=== PATIENT | female | born 1985 | race Caucasian/White ===

== ENCOUNTER 2018-06-16 11:15 | Outpatient (CLI) | payer OTHER ==
[~2018-06-16] VITALS: Ht 165.1 cm; Wt 104.1 kg
[2018-06-16 11:28] VITALS: BP 142/91; PULSE 101; RESP 20; Ht 165.1 cm; Wt 104.1 kg
[2018-06-16] MEDS ORDERED: PREN1TAB13 PO (11:30)
[2018-06-16] MEDS ORDERED: FERR325T5 PO (11:31)
[2018-06-16] MEDS ORDERED: CHOL400T10 PO (11:32)
[2018-06-16] MEDS: LACTATED RINGER'S 1,000 ML IV SCH ×2 (12:01→16:11)
--- NOTE | 2018-06-16 14:33 | HP ---
Date/Time of Note Date/Time of Note DATE: 06/16/18 TIME: 14:31 OB - History Hx of Present Free Text/Dictation 23+wks With cramps and Positive FFN For Observations and steroids : 2 Para: 1 Care: Good Care Ultrasounds: Normal mid trimester US Obstetrical Complications: None Medical Complications: None Past Family/Social History * Past Medical, Surgical, Family and Obstetric Histories reviewed from chart. OB Admission Exam Vital Signs Vital Signs Vital Signs Date Temp Pulse Resp B/P (MAP) Pulse Ox O2 O2 Flow FiO2 Time Delivery Rate 06/16/18 98.5 101 20 142/91 Room Air 11:28 (108) Physical Exam Abdomen: WNL Cervical Dilatation: None Effacement: 0% Station: Ballotable Membranes: Intact Heart Rate: 140's Accelerations: Accelerations Present Decelerations: No Decelerations Varibility: Moderate Contractions on Admission: None Last 72 hours Lab Results CBC & BMP 06/16/18 11:54 Liver Function Test 06/16/18 11:54 Alanine Aminotransferase (ALT/SGPT) 22 Albumin 4.0 Alkaline Phosphatase 74 Aspartate Amino Transf (AST/SGOT) 24 Direct Bilirubin 0.00 Total Protein 7.5 OB Assessment/Plan Reason for admission: observation Other Assessment: PMH Denies PSH Denies Allergy NKDA Plan: Expectant Management Other plan: Steroids Observation Close Monitoring JOSE BRAVO M.D. Jun 16, 2018 14:33
[2018-06-16] MEDS ORDERED: CEFAZOLIN 2 GM/50 ML (PMX) 50 ML IVPB ONE (15:00)
[2018-06-16] MEDS ORDERED: BETAMET NA PHOS/AC(6 MG/ML) 2 ML INJ SYG IM ONE (16:00)
--- NOTE | 2018-06-16 17:45 | TRIAGE ---
OB Triage Datetime Report Generated by CPN: 06/16/2018 17:44 Datetime: 06/16/2018 17:00 Labor Evaluation Frequency: X1 Monitor Mode: External Duration (sec)2399: 40 Quality: Mild Pattern: Normal: <= 5 Contractions in 10 Minutes Resting Tone [place]: Relaxed Heart Rate FHR Baseline Rate: 150 Monitor Mode: External US FHR Baseline Changes: No Baseline Change Variability: Moderate 6-25 bpm Accelerations: 10X10 Decelerations: None Category: Category I Pain Assessment Pain Scale: 0 Pain Presence: None/Denies Pain Type: N/A Pain Goal: 0 Datetime: 06/16/2018 16:00 Labor Evaluation Frequency: 0 Monitor Mode: External Monitor Mode: External US Pain Assessment Pain Scale: 1 Pain Presence: Intermittent Pain Type: Cramping Pain Location: Abdomen; Back Pain Goal: 0 Datetime: 06/16/2018 15:00 Labor Evaluation Frequency: X1 Monitor Mode: External Duration (sec)2399: 40 Quality: Mild Pattern: Normal: <= 5 Contractions in 10 Minutes Resting Tone [place]: Relaxed Heart Rate FHR Baseline Rate: 145 Monitor Mode: External US FHR Baseline Changes: No Baseline Change Variability: Moderate 6-25 bpm Accelerations: 10X10 Decelerations: None Category: Category I Pain Assessment Pain Scale: 1 Pain Presence: Intermittent Pain Type: Cramping Pain Location: Abdomen; Back Pain Goal: 0 Datetime: 06/16/2018 13:53 Labor Evaluation Frequency: 0 Monitor Mode: External Heart Rate FHR Baseline Rate: 140 Monitor Mode: External US FHR Baseline Changes: No Baseline Change Variability: Moderate 6-25 bpm Accelerations: 10X10 Decelerations: None Category: Category I Pain Assessment Pain Scale: 2 Pain Presence: Intermittent Pain Type: Cramping Pain Location: Abdomen; Back Pain Goal: 0 Datetime: 06/16/2018 13:31 Labor Evaluation Frequency: X1 Monitor Mode: External Duration (sec)2399: 40 Quality: Mild Pattern: Normal: <= 5 Contractions in 10 Minutes Resting Tone [place]: Relaxed Heart Rate FHR Baseline Rate: 150 Monitor Mode: External US Pain Assessment Pain Scale: 2 Pain Presence: Intermittent Pain Type: Cramping Pain Location: Abdomen; Back Pain Goal: 0 Datetime: 06/16/2018 12:53 Labor Evaluation Frequency: X1 Monitor Mode: External Duration (sec)2399: 60 Quality: Mild Pattern: Normal: <= 5 Contractions in 10 Minutes Resting Tone [place]: Relaxed Heart Rate FHR Baseline Rate: 150 Monitor Mode: External US FHR Baseline Changes: No Baseline Change Variability: Moderate 6-25 bpm Accelerations: 10X10 Decelerations: None Category: Category I Pain Assessment Pain Scale: 2 Pain Presence: Intermittent Pain Type: Cramping Pain Location: Abdomen; Back Pain Goal: 0 Datetime: 06/16/2018 12:24 Labor Evaluation Frequency: x1 Monitor Mode: External Duration (sec)2399: 40 Quality: Mild Pattern: Normal: <= 5 Contractions in 10 Minutes Resting Tone [place]: Relaxed Heart Rate FHR Baseline Rate: 150 Monitor Mode: External US FHR Baseline Changes: No Baseline Change Variability: Moderate 6-25 bpm Accelerations: 10X10 Decelerations: None Category: Category I Pain Assessment Pain Scale: 2 Pain Presence: Intermittent Pain Type: Cramping Pain Location: Abdomen; Back Pain Goal: 0 Datetime: 06/16/2018 11:53 Labor Evaluation Frequency: x2 Monitor Mode: External Duration (sec)2399: 40 Quality: Mild Pattern: Normal: <= 5 Contractions in 10 Minutes Resting Tone [place]: Relaxed Heart Rate FHR Baseline Rate: 150 Monitor Mode: External US FHR Baseline Changes: No Baseline Change Variability: Moderate 6-25 bpm Accelerations: 10X10 Decelerations: None Category: Category I Pain Assessment Pain Scale: 2 Pain Presence: Intermittent Pain Type: Cramping Pain Location: Abdomen; Back Pain Goal: 0 Datetime: 06/16/2018 11:36 EGA: 23.1 Datetime: 06/16/2018 11:21 Stage of : OB Triage Maternal Assessment Level of Consciousness: Fully Conscious Headache: Denies Blurred Vision: No Respiratory Effort: Unlabored; Regular Rhythm; Equal Expansion Breath Sounds, Left: Clear and Equal Breath Sounds, Right: Clear and Equal Nausea/Vomiting: Denies RUQ Epigastric Pain: Denies Lower Extremities Edema: None Degree: None Upper Extremities Edema: None Degree: None Facial Edema: None Temperature Route: Axillary Fall Risk Assessment History of Falling: (0) No Secondary Diagnosis: (0) No Ambulatory Aid: (0) Bedrest/Nurse Assist IV Therapy: (0) No Gait: (0) Normal/Bedrest/Immobile Mental Status: (0) Oriented to Own Ability Fall Score: 0 Fall Risk Score Definition: No Risk: No action required Datetime: 06/16/2018 11:20 Time of Arrival: 06/16/2018 11:10 Arrived By: Ambulatory Arrived From: Dr. Jolley Chief Complaint: cramping Movement: Present Rupture of Membranes: Denies Vaginal Discharge: Denies Recent Sexual Intercouse: Denies Abdominal Trauma: Not Applicable Patient Complaints: Cramping Time Provider Notified: 06/16/2018 14:04 Provider Notified: ALEYDA BEAN Initial Plan: efm, ua, iv hydration
== END 2018-06-16 17:34 | disposition home or self-care (01) ==
LOC: L-D 11:15 → OBT 11:15
PROVIDERS: ATTEND Obstetrics & Gynecology
DX: O62.9 Abnormality of forces of labor, unspecified (principal); Z3A.23 23 weeks gestation of pregnancy
CPT/HCPCS: 76817; 76818; 80053; 81001; 82731; 84560; 85025; 85610; 85730; J0690; J0702; J7120; 96360; G0463

== ENCOUNTER 2018-09-11 09:29 | Outpatient (CLI) | payer OTHER ==
[~2018-09-11] VITALS: Ht 165.1 cm; Wt 109.1 kg
[~2018-09-11 09:29] MED LIST: CHOL400T10 PO; FERR325T5 PO; PREN1TAB13 PO
[2018-09-11 09:31] VITALS: Ht 165.1 cm; Wt 109.1 kg
[2018-09-11 09:44] VITALS: BP 134/87; PULSE 90; RESP 20
--- NOTE | 2018-09-11 11:08 | PN ---
Triage Information Date/Time Reason for visit: Uterine contractions Weeks of Gestation 35+ /Para 2/1 Diabetes: none Hypertention: none Objective Vital Signs Date Temp Pulse Resp B/P (MAP) Pulse Ox O2 O2 Flow FiO2 Time Delivery Rate 09/11/18 97.9 90 20 134/87 Room Air 09:44 (103) Heart Rate: 140's Contractions: 6-10 Minutes Apart Disposition: Discharge Assessment/Plan Bpp 10/10 Cx 1/L/posterior Precautions discussed Questions answered Follow up with provider JOSE BRAVO M.D. Sep 11, 2018 11:08
--- NOTE | 2018-09-11 11:21 | TRIAGE ---
OB Triage Datetime Report Generated by CPN: 09/11/2018 11:20 Datetime: 09/11/2018 11:03 Labor Evaluation Frequency: x1 Monitor Mode: External Duration (sec)2399: 40 Quality: Mild Pattern: Normal: <= 5 Contractions in 10 Minutes Resting Tone [place]: Relaxed Heart Rate FHR Baseline Rate: 135 Monitor Mode: External US FHR Baseline Changes: No Baseline Change Variability: Moderate 6-25 bpm Accelerations: 15X15 Decelerations: None Category: Category I Comments: Dr. Glover at bedside to review strip and review u/s results. Pt ok to go home, no new orders received. Datetime: 09/11/2018 11:00 Comments: BPP results of 01/04 with PRASANNA of 11.[address] Glover. He will be here to d/c pt. Datetime: 09/11/2018 10:42 Comments: U/S in progress Datetime: 09/11/2018 10:24 Comments: Dr. Glover was informed of pt's arrival to unit with c/o's cramping and Dr Euceda order s to hydrate pt, BPP and send pt home. No new order given by Dr. Glover. Will call him with results Datetime: 09/11/2018 10:23 Comments: Dr. Euceda was informed of pt's arrival to unit with c/o cramping. No contractions noted, VE . New order for PO hydration, BPP and send pt home. Datetime: 09/11/2018 10:22 Vaginal Exam Dilatation (cms): 1.0 Effacement (%): 30 Station: -2 Exam By: LH Datetime: 09/11/2018 10:10 Maternal Assessment Level of Consciousness: Fully Conscious Headache: Denies Blurred Vision: No Nausea/Vomiting: Denies RUQ Epigastric Pain: Present Facial Edema: None Labor Evaluation Frequency: x2 Monitor Mode: External Duration (sec)2399: 4 Quality: Mild Pattern: Normal: <= 5 Contractions in 10 Minutes Resting Tone [place]: Relaxed Heart Rate FHR Baseline Rate: 140 Monitor Mode: External US FHR Baseline Changes: No Baseline Change Variability: Moderate 6-25 bpm Accelerations: 15X15 Decelerations: None Category: Category I Pain Assessment Pain Scale: 3 Pain Presence: Intermittent Pain Type: Cramping Pain Location: Abdomen Pain Goal: 6 Pain Relief Measures: Comfort Measures Membrane Status: Intact Datetime: 09/11/2018 09:40 Stage of : OB Triage Assessment Type: Triage Maternal Assessment Level of Consciousness: Fully Conscious DTR's/Clonus: DTRs 2+; No Clonus Headache: Denies Blurred Vision: No Respiratory Effort: Unlabored; Regular Rhythm; Equal Expansion Breath Sounds, Left: Clear and Equal Breath Sounds, Right: Clear and Equal Nausea/Vomiting: Denies RUQ Epigastric Pain: Denies Lower Extremities Edema: Bilateral Lower Extremities Degree: 1+ Upper Extremities Edema: None Degree: None Facial Edema: None Fall Risk Assessment History of Falling: (0) No Secondary Diagnosis: (0) No Ambulatory Aid: (0) Bedrest/Nurse Assist IV Therapy: (0) No Gait: (0) Normal/Bedrest/Immobile Mental Status: (0) Oriented to Own Ability Fall Score: 0 Fall Risk Score Definition: No Risk: No action required Pain Assessment Pain Scale: 4 Pain Presence: Intermittent Pain Type: Cramping Pain Location: Abdomen Pain Goal: 6 Datetime: 09/11/2018 09:34 Time of Arrival: 09/11/2018 09:25 EGA: 35.4 Arrived By: Ambulatory Arrived From: Home Chief Complaint: Cramping Movement: Present Rupture of Membranes: Denies Vaginal Bleeding: None Vaginal Discharge: Present Recent Sexual Intercouse: Denies Abdominal Trauma: Not Applicable Patient Complaints: Cramping Provider Notified: Ok Initial Plan: NST, BPP and PO hydration Datetime: 06/16/2018 11:36 EGA: 23.1 Datetime: 06/16/2018 11:21 Fall Score: 0 Fall Risk Score Definition: No Risk: No action required
== END 2018-09-11 11:20 | disposition home or self-care (01) ==
LOC: OBT 09:29 → L-D 09:29 → OBT 11:20
PROVIDERS: ATTEND Obstetrics & Gynecology
DX: O62.9 Abnormality of forces of labor, unspecified (principal); Z3A.35 35 weeks gestation of pregnancy
CPT/HCPCS: 76818; Z7500; G0463

== ENCOUNTER 2018-09-25 09:01 | Inpatient (IN) | payer OTHER ==
[~2018-09-25] VITALS: Ht 165.1 cm; Wt 109.4 kg
[2018-09-25 09:18] VITALS: Ht 165.1 cm; Wt 109.4 kg
--- NOTE | 2018-09-25 09:36 | TRIAGE ---
OB Triage Datetime Report Generated by CPN: 09/25/2018 09:35 Datetime: 09/25/2018 09:32 Stage of : OB Triage Datetime: 09/25/2018 09:23 Maternal Assessment Level of Consciousness: Fully Conscious DTR's/Clonus: DTRs 1+ Headache: Denies Blurred Vision: No Respiratory Effort: Unlabored Breath Sounds, Left: Clear and Equal Breath Sounds, Right: Clear and Equal Nausea/Vomiting: Denies RUQ Epigastric Pain: Denies Facial Edema: None Labor Evaluation Frequency: NONE Monitor Mode: External Resting Tone [place]: Relaxed Heart Rate FHR Baseline Rate: 140 Monitor Mode: External US Variability: Moderate 6-25 bpm Accelerations: 10X10 Decelerations: None Category: Category I Pain Assessment Pain Scale: 4 Pain Presence: Intermittent Pain Type: Cramping; Ache Pain Location: Back Pain Goal: 3 Vaginal Exam Membrane Status: Intact Datetime: 09/25/2018 09:05 Assessment Type: Triage Maternal Assessment Level of Consciousness: Fully Conscious DTR's/Clonus: DTRs 2+; No Clonus Headache: Denies Blurred Vision: No Respiratory Effort: Unlabored; Regular Rhythm; Equal Expansion Breath Sounds, Left: Clear and Equal Breath Sounds, Right: Clear and Equal Nausea/Vomiting: Denies RUQ Epigastric Pain: Denies Lower Extremities Edema: None Degree: None Upper Extremities Edema: None Degree: None Facial Edema: None Fall Risk Assessment History of Falling: (0) No Secondary Diagnosis: (0) No Ambulatory Aid: (0) Bedrest/Nurse Assist IV Therapy: (0) No Gait: (0) Normal/Bedrest/Immobile Mental Status: (0) Oriented to Own Ability Fall Score: 0 Fall Risk Score Definition: No Risk: No action required Datetime: 09/25/2018 08:57 Time of Arrival: 09/25/2018 08:57 EGA: 37.4 Chief Complaint: LEFT SIDE FLANK PAIN AND ABD PAIN Movement: Present Contractions: Denies/Absent Rupture of Membranes: Denies Vaginal Discharge: Denies Recent Sexual Intercouse: Denies Abdominal Trauma: Not Applicable Additional Patient Complaints: NONE Time Provider Notified: 09/25/2018 09:16 Provider Notified: ALEYDA Initial Plan: NST, BPP, UA Datetime: 09/11/2018 09:40 Fall Score: 0 Fall Risk Score Definition: No Risk: No action required Datetime: 09/11/2018 09:34 EGA: 35.4 Datetime: 06/16/2018 11:36 EGA: 23.1 Datetime: 06/16/2018 11:21 Fall Score: 0 Fall Risk Score Definition: No Risk: No action required
[2018-09-25] MEDS: LACTATED RINGER'S 1,000 ML IV SCH ×2 (10:40→18:55)
[2018-09-25] MEDS: CEFAZOLIN 2 GM/50 ML (PMX) 50 ML IVPB SCH ×2 (11:46→17:58)
[2018-09-26] MEDS: CEFAZOLIN 2 GM/50 ML (PMX) 50 ML IVPB SCH ×4 (00:13→17:50)
[2018-09-26] MEDS: LACTATED RINGER'S 1,000 ML IV SCH ×3 (03:16→21:00)
[2018-09-26] MEDS: FERROUS SULFATE (EC) 325 MG TAB PO SCH (09:34)
[2018-09-26] MEDS: PRENATAL VITAMIN PO SCH (09:34)
--- NOTE | 2018-09-26 12:32 | HP ---
Date/Time of Note Date/Time of Note DATE: 09/26/18 TIME: 12:30 OB - History Hx of Present Free Text/Dictation at 37/4 weeks with flank pain Care: Good Care Ultrasounds: Normal mid trimester US Obstetrical Complications: None Medical Complications: None Past Family/Social History * Past Medical, Surgical, Family and Obstetric Histories reviewed from chart. OB Admission Exam Physical Exam HEENT: WNL Heart: Rhythm Normal Lungs: Clear, Equal Abdomen: WNL Extremities: Normal Reflexes: Normal Cervical Dilatation: None Effacement: 0% Station: Ballotable Membranes: Intact Heart Rate: 120's Accelerations: Accelerations Present Decelerations: No Decelerations Intensity: Moderate OB Assessment/Plan Reason for admission: other (pylonephritis) Plan: Other (ancef) KACEY MAYNARD MD Sep 26, 2018 12:32
--- NOTE | 2018-09-26 13:41 | DS ---
Date/Time of Note Date/Time of Note DATE: 09/26/18 TIME: 13:40 Discharge Summary Admission/Discharge Info Admit Date/Time Sep 25, 2018 at 09:32 Discharge Date/Time Discharge Diagnosis pyelonephritis Patient Condition: Stable Hospital Course received Ancef Home Meds Reported Medications Cholecalciferol* (Vitamin D*) 400 Unit Tablet, 400 UNIT PO DAILY, TAB 06/16/18 Ferrous Sulfate (Ferrous Sulfate) 325 Mg Tablet.dr, 325 MG PO DAILY 06/16/18 Pnv95/Ferrous Fumarate/FA ( Vitamins Tablet) 1 Each Tablet, 1 EACH PO DAILY, TAB 06/16/18 Primary Care Provider Not On Staff Doctor Pending Labs Laboratory Tests Test 09/26/18 07:00 Lab Scanned Report REFER[facility] LAB [id number] KACEY MAYNARD MD Sep 26, 2018 13:41
[2018-09-27] MEDS: CEFAZOLIN 2 GM/50 ML (PMX) 50 ML IVPB SCH ×2 (00:01→06:04)
[2018-09-27] MEDS: LACTATED RINGER'S 1,000 ML IV SCH ×3 (05:05→21:32)
[2018-09-27] MEDS: FERROUS SULFATE (EC) 325 MG TAB PO SCH (11:42)
[2018-09-27] MEDS: PRENATAL VITAMIN PO SCH (11:42)
[2018-09-27] MEDS ORDERED: LACTATED RINGER'S 1,000 ML IV SCH ×2 (12:33→13:32)
[2018-09-27] MEDS ORDERED: IBUPROFEN 600 MG TAB PO PRN ×2 (13:00→14:00)
[2018-09-27] MEDS ORDERED: AMPICILLIN 2 GM/NS (PMX) 100 ML IV ONE (13:00)
[2018-09-27] MEDS ORDERED: LIDOCAINE 1% (MPF) 30 ML INJ INJ PRN (13:00)
[2018-09-27] MEDS ORDERED: CARBOPROST 250 MCG INJ IM PRN (13:00)
[2018-09-27] MEDS ORDERED: OXYTOCIN 30 UNITS/LR 500 ML IV SCH (13:00)
[2018-09-27] MEDS ORDERED: BUTORPHANOL 2 MG INJ IV PRN ×2 (13:00)
[2018-09-27] MEDS ORDERED: MISOPROSTOL 200 MCG TAB PR PRN (13:00)
[2018-09-27] MEDS ORDERED: OXYTOCIN 30 UNITS/LR 500 ML IV PRN (13:00)
[2018-09-27] MEDS ORDERED: METHYLERGONOVINE 0.2 MG INJ IM PRN (13:00)
[2018-09-27] MEDS: MISOPROSTOL 50 MCG CAPSULE PO SCH ×3 (15:31→22:30)
--- NOTE | 2018-09-27 18:24 | PN ---
Date/Time of Note Date/Time of Note DATE: 09/27/18 TIME: 18:21 OB Subjective Subjective Subjective Patient seen and examined. She states good movement. She denies nausea, vomiting, shortness of breath, chest pain, abdominal pain, uterine contractions, headache, visual changes, vaginal bleeding or LOF. General: Patient appears well, alert and oriented, NAD, appropriate mood and affect ABD: gravid, soft, non-tender. Back: No CVA tenderness (B/L) LE: Mild edema. No clubbing, cyanosis, edema, thigh or calf tenderness bilaterally FHT: 135 bpm , moderate variability with acceleration, no deceleration-category I Contractions: None SVE: 1-2/70/ceph/intact membrane/ROM/clear* 33 years old 2 para 1-0-0-1 with single intrauterine at 37 weeks and 6 days with the chronic hypertension. First elevated blood pressure was at 11 weeks of gestation. She was admitted for back pain. However today her blood pressure was elevated, CBC and CMP done, normal platelet and ALT. Elevated AST. Patient discussed with Dr. Gupta he would recommend delivery. Patient transferred to labor and delivery for further management. Primary OB physician updated - FHR: Reassuring. No sign of metabolic acidosis- Category I - Continuous EFM, toco. - Epidural per patient request - Please see the order Admission, procedures, expectations, risks and possible complications have been discussed in detail with the patient. Risk of vaginal delivery including but not limited to bleeding, infection, cervical laceration, placental retention, injury to fetus, blood transfusion, blood transfusion related infection, risk of anesthesia, adhesion, cervical laceration, episiotomy/laceration, possible delivery with risk of bleeding, infection, injury to other organs (bowel, bladder, ureter, vessels, nerves), injury to fetus, blood transfusion, blood transfusion related infection, risk of anesthesia, scar and hernia formation, needs for future , removal of uterus or any other indicated surgery discussed with the patient. She expressed understanding and repeats the risks. All of her questions were answered. She signed the informed consent. PHYSICIAN'S VERIFICATION OF INFORMED CONSENT The patient was counseled regarding the procedure, its indications, risks, potential complications and alternatives and any questions were answered. Consent was obtained. PLANNED PROCEDURE/TREATMENT: Vaginal delivery, episiotomy, repair of laceration possible delivery HADADIAN,SUKHDEEP September 27, 2018 18:24
[2018-09-27] MEDS: AMPICILLIN 1 GM/NS (PMX) 50 ML IV SCH ×2 (20:24→21:31)
--- NOTE | 2018-09-27 22:03 | PREAC ---
Date/Time of Note Date/Time of Note DATE: 09/27/18 TIME: 22:02 Anesthesia Eval and Record Evaluation Time Pre-Procedure Interview DATE: 09/27/18 TIME: 22:02 Age 33 Sex female NPO: 8 hrs Preoperative diagnosis Planned procedure labor epidural Past Medical History Past Medical History: Includes GI: Morbid obesity Surgery & Anesthesia Issues No known issue Meds Anticoagulation: No Beta Sandra within 24 hr: No Reason Beta Sandra not given: Pt. not on B-Sandra Reported Medications Cholecalciferol* (Vitamin D*) 400 Unit Tablet, 400 UNIT PO DAILY, TAB 06/16/18 Ferrous Sulfate (Ferrous Sulfate) 325 Mg Tablet.dr, 325 MG PO DAILY 06/16/18 Pnv95/Ferrous Fumarate/FA ( Vitamins Tablet) 1 Each Tablet, 1 EACH PO DAILY, TAB 06/16/18 Current Medications Lactated Ringer's 1,000 ml @ 125 mls/hr Q8H IV Last administered on 09/27/18at 21:31; Admin Dose 125 MLS/HR; Start 09/25/18 at 10:11 Prenat Multivit/ [place]/Iron/Folic Ac () 1 tab DAILY PO Last administered on 09/27/18at 11:42; Admin Dose 1 TAB; Start 09/26/18 at 09:00 Ferrous Sulfate (Ferrous Sulfate (Ec)) 325 mg DAILY PO Last administered on 09/27/18at 11:42; Admin Dose 325 MG; Start 09/26/18 at 09:00 Ampicillin 50 ml @ 100 mls/hr Q4H IV Last administered on 09/27/18at 21:31; Admin Dose 100 MLS/HR; Start 09/27/18 at 17:00 Butorphanol Tartrate (Stadol) 1 mg Q2H PRN IV PAIN; Start 09/27/18 at 13:00 Butorphanol Tartrate (Stadol) 2 mg Q2H PRN IV .PAIN; Start 09/27/18 at 13:00 Lidocaine (Xylocaine 1% (Mpf)) 30 ml ONCE PRN INJ .EPISIOTOMY; Start 09/27/18 at 13:00 Oxytocin/Lactated Ringer's 500 ml @ 500 mls/hr ONCE POST IV ; Start 09/27/18 at 13:00 Oxytocin/Lactated Ringer's 500 ml @ 125 mls/hr POST IV ; Start 09/27/18 at 13:00 Ibuprofen (Motrin) 600 mg ONCE PRN PO .PAIN 1-5; Start 09/27/18 at 13:00 Oxytocin/Lactated Ringer's 500 ml @ 0 mls/hr ONCE PRN IV .VAGINAL BLEEDING; Start 09/27/18 at 13:00 Methylergonovine Maleate (Methergine) 0.2 mg ONCE PRN IM .VAGINAL BLEEDING; Start 09/27/18 at 13:00 Carboprost Tromethamine (Hemabate) 250 mcg ONCE PRN IM .VAGINAL BLEEDING; Start 09/27/18 at 13:00 Misoprostol (Cytotec) 1,000 mcg ONCE PRN OR .VAGINAL BLEEDING; Start 09/27/18 at 13:00 Ibuprofen (Motrin) 600 mg ONCE PRN PO .PAIN 1-5; Start 09/27/18 at 14:00; Stop 09/27/18 at 23:00 Misoprostol (Cytotec 50 Mcg Capsule) 50 mcg Q4 PO Last administered on 09/27/18at 20:59; Admin Dose 50 MCG; Start 09/27/18 at 15:00 Meds reviewed: Yes Allergies Coded Allergies: No Known Allergy (Unverified , 09/25/18) Allergies Reviewed: Yes Labs/Studies Labs Reviewed: Reviewed by anesthesiologist Result Diagram: 09/27/18 1049 09/27/18 1049 Laboratory Tests 09/27/18 10:49 Blood Bank Test 09/27/18 13:23 Antibody Screen NEGATIVE Blood Type O POSITIVE test: Positive Pre-procedure Exam Airway: Adequate mouth opening, Adequate thyromental dist Mallampati: Mallampati II Teeth: Normal Lung: Normal Heart: Normal ASA Physical Status ASA physical status: 2 Emergency: None Planned Anesthetic Neuraxial: Epidural Pre-operative Attestations Prior to commencing anesthesia and surgery, the patient was re-evaluated, there was verification of: *The patient's identity *The results of appropriate recent lab work and preoperative vital signs *The above evaluation not changing prior to induction *Anesthetic plan, risk benefits, alternative and complications discussed with patient/family; questions answered; patient/family understands, accepts and wishes to proceed. MEE GALLEGOS September 27, 2018 22:03
[2018-09-27] MEDS ORDERED: FENTAnyl 2MCG/ML-ROPIV 0.2% 100 ML ONE (22:52)
--- NOTE | 2018-09-27 23:03 | PAC ---
Date/Time of Note Date/Time of Note DATE: 09/27/18 TIME: 23:03 Post-Anesthesia Notes Post-Anesthesia Note Activity: WNL Respiratory function: WNL Cardiovascular function: WNL Mental status: Baseline Pain reasonably controlled: Yes Hydration appropriate: Yes Nausea/Vomiting absent: Yes MEE GALLEGOS September 27, 2018 23:03
[2018-09-28] VITALS (15 sets, daily range): BP systolic 132–155; BP diastolic 76–95; PULSE 81–95; RESP 18–20
[2018-09-28] MEDS: AMPICILLIN 1 GM/NS (PMX) 50 ML IV SCH ×4 (01:00→12:52)
[2018-09-28] MEDS: MISOPROSTOL 50 MCG CAPSULE PO SCH ×2 (01:00→05:00)
[2018-09-28] MEDS: LACTATED RINGER'S 1,000 ML IV SCH ×2 (02:11→07:37)
[2018-09-28] MEDS ORDERED: OXYTOCIN 30 UNITS/LR 500 ML IV SCH ×2 (03:30→14:34)
[2018-09-28] MEDS: PRENATAL VITAMIN PO SCH (09:00)
[2018-09-28] MEDS: FERROUS SULFATE (EC) 325 MG TAB PO SCH (09:00)
[2018-09-28] MEDS ORDERED: FENTAnyl 2MCG/ML-ROPIV 0.2% 100 ML BAG EPI SCH (09:30)
[2018-09-28] MEDS ORDERED: NALOXONE (0.4 MG/ML) INJ IV PRN (09:30)
[2018-09-28] MEDS: OXYTOCIN 30 UNITS/LR 500 ML IV SCH ×2 (13:11→13:55)
--- NOTE | 2018-09-28 13:40 | LDN ---
Date/Time of Note Date/Time of Note DATE: 09/28/18 TIME: 13:39 Delivery Summary Weeks of Gestation term Meconium: none Episiotomy: No Perineal laceration: 1 Anesthesia type: Epidural Estimated blood loss: 300 Sponge & Needle done & correct: Yes All needle counts correct: Yes Any foreign bodies felt in the: No KACEY MAYNARD MD September 28, 2018 13:40
[2018-09-28] MEDS ORDERED: MAGNESIUM SULFATE 4 GM/100 ML 100 ML ONE (14:15)
[2018-09-28] MEDS ORDERED: MAGNESIUM SULFATE 4 GM/100 ML 100 ML IVPB ONE (14:29)
[2018-09-28] MEDS ORDERED: MAGNESIUM SULFATE 2 GM/50 ML 50 ML IVPB SCH ×4 (14:30→19:00)
[2018-09-28] MEDS: LACTATED RINGER'S 1,000 ML IV* SCH ×2 (14:34→22:54)
[2018-09-28] MEDS ORDERED: OXYTOCIN 30 UNITS/LR 500 ML IV PRN (15:00)
[2018-09-28] MEDS ORDERED: LANOLIN HPA 1 PKT TOP PRN (15:00)
[2018-09-28] MEDS ORDERED: SENNA/DOCUSATE NA (8.6MG/50MG) TAB PO PRN (15:00)
[2018-09-28] MEDS ORDERED: MAGNESIUM HYDROXIDE 30ML CUP PO PRN (15:00)
[2018-09-28] MEDS ORDERED: ZOLPIDEM 5 MG TAB PO PRN (15:00)
[2018-09-28] MEDS ORDERED: METHYLERGONOVINE 0.2 MG INJ IM PRN (15:00)
[2018-09-28] MEDS ORDERED: CARBOPROST 250 MCG INJ IM PRN (15:00)
[2018-09-28] MEDS ORDERED: DIPHENHYDRAMINE 25 MG CAP PO PRN (15:00)
[2018-09-28] MEDS ORDERED: MISOPROSTOL 200 MCG TAB PR PRN (15:00)
[2018-09-28] MEDS: MAGNESIUM SULFATE 20 GM/500 ML 500 ML IV SCH (15:14)
[2018-09-28] MEDS: IBUPROFEN 800 MG TAB PO SCH ×2 (18:06→23:57)
[2018-09-28] MEDS ORDERED: CALCIUM GLUCONATE 10% 1 GM in DEXTROSE 5% 100 ML IVPB ONE (19:00)
[2018-09-28] MEDS: ACETAMINOPHEN 325 MG TAB PO PRN (22:14)
[2018-09-29] VITALS (15 sets, daily range): BP systolic 121–145; BP diastolic 72–97; PULSE 70–87; RESP 17–20
[2018-09-29] MEDS: MAGNESIUM SULFATE 20 GM/500 ML 500 ML IV SCH ×2 (01:21→11:19)
[2018-09-29] MEDS: HYDROCODONE/APAP (5/325) TAB PO PRN ×2 (02:03→19:17)
[2018-09-29] MEDS: IBUPROFEN 800 MG TAB PO SCH ×3 (05:59→17:29)
[2018-09-29] MEDS: LACTATED RINGER'S 1,000 ML IV* SCH (06:34)
[2018-09-29] MEDS: BENZOCAINE 20% 56 ML SPRAY TOP PRN (08:15)
[2018-09-29] MEDS: WITCH HAZEL/GLYCERIN PAD PR PRN (08:16)
[2018-09-30] MEDS: IBUPROFEN 800 MG TAB PO SCH ×4 (00:16→18:30)
[2018-09-30] MEDS: HYDROCODONE/APAP (5/325) TAB PO PRN ×4 (00:21→21:10)
[2018-09-30] MEDS: BENZOCAINE 20% 56 ML SPRAY TOP PRN (00:22)
[2018-09-30] MEDS: WITCH HAZEL/GLYCERIN PAD PR PRN (00:22)
[2018-09-30 04:00] VITALS: BP 137/86; PULSE 65; RESP 19
[2018-09-30 08:00] VITALS: BP 139/85; PULSE 74; RESP 18
[2018-09-30] MEDS ORDERED: DIPHTH/TET/ACEL PERTUSS (ADULT) 0.5 ML VIAL IM* ONE (09:00)
[2018-09-30] MEDS ORDERED: MEASLES,MUMPS,RUBELLA VACCINE INJ SC* ONE (09:00)
[2018-09-30] MEDS ORDERED: VARICELLA VACCINE LIVE/PF 1,350 UNIT/0.5 ML ML SC* ONE (09:00)
[2018-09-30 12:04] VITALS: BP 151/89; PULSE 76; RESP 18
[2018-09-30 14:00] VITALS: BP 133/79; PULSE 79
--- NOTE | 2018-09-30 16:17 | PN ---
Date/Time of Note Date/Time of Note DATE: 09/30/18 TIME: 16:14 OB Subjective Subjective Subjective Patient denies any headache, blurred vision, epigastric pain or right upper qu adrant pain. Denies any nausea vomiting. Denies any dizziness or lightheadedness. Denies any shortness of breath or chest pain. OB Objective Objective Objective General appearance: Alert and oriented x4 does not appear to be in any acute distress. Abdomen: Soft, fundus palpable and firm below the umbilicus. Breast: No evidence of mastitis or fissure Extremities: No calf tenderness, no click no edema no cord palpable VS - Last 72 Hours, by Label Date Temp Pulse Resp B/P (MAP) Pulse Ox O2 O2 Flow FiO2 Time Delivery Rate 09/30/18 97.9 79 133/79 Room Air 14:00 (97) 09/30/18 97.9 76 18 151/89 Room Air 12:04 (109) 09/30/18 98.0 74 18 139/85 Room Air 08:00 (103) 09/30/18 97.8 65 19 137/86 Room Air 04:00 (103) 09/29/18 97.6 70 18 132/83 Room Air 20:45 (99) 09/29/18 97.7 81 18 121/76 16:05 (91) 09/29/18 18 125/72 Room Air 13:30 (89) 09/29/18 98.3 83 18 122/82 Room Air 12:30 (95) 09/29/18 98.4 81 18 126/75 Room Air 11:30 (92) 09/29/18 98.3 87 18 125/80 Room Air 10:30 (95) 09/29/18 98.3 87 18 122/80 Room Air 09:30 (94) 09/29/18 98.3 75 20 133/91 Room Air 08:30 (105) 09/29/18 98.0 80 18 128/78 Room Air 06:51 (95) 09/29/18 78 18 131/81 05:00 (98) 09/29/18 98.0 82 18 134/86 Room Air 04:00 (102) 09/29/18 84 18 140/96 Room Air 03:00 (111) 09/29/18 81 18 145/97 Room Air 02:00 (113) 09/29/18 81 17 130/81 Room Air 01:00 (97) 09/29/18 98.0 80 18 136/84 00:00 (101) 09/28/18 82 18 132/80 Room Air 23:00 (97) 09/28/18 81 18 132/86 Room Air 22:00 (101) 09/28/18 82 19 134/84 Room Air 21:00 (101) 09/28/18 98.0 91 18 135/85 98 Room Air 20:00 (102) 09/28/18 94 18 142/91 Room Air 19:00 (108) 09/28/18 84 18 145/89 Room Air 18:00 (107) 09/28/18 81 18 137/90 Room Air 17:00 (106) 09/28/18 94 20 152/89 Room Air 16:00 (110) 09/28/18 98.2 95 20 153/88 Room Air 15:40 (109) 09/28/18 97.9 90 18 145/81 Room Air 15:16 (102) 09/28/18 87 18 140/84 Room Air 14:47 (102) 09/28/18 97.8 90 18 155/92 Room Air 14:10 (113) 09/28/18 85 18 149/91 Room Air 13:55 (110) 09/28/18 97.3 85 18 155/95 Room Air 13:40 (115) 09/28/18 90 18 150/76 Room Air 13:25 (100) Laboratory Tests Test 09/28/18 18:47 09/29/18 00:26 09/29/18 07:40 09/29/18 14:04 Magnesium Level 4.5 mg/dl 5.1 mg/dl 5.8 mg/dl 5.6 mg/dl White Blood Count 8.6 10^3/ul Red Blood Count 3.71 10^6/ul Hemoglobin 11.3 g/dl Hematocrit 33.8 % Mean Corpuscular 91.1 fl Volume Mean Corpuscular 30.5 pg Hemoglobin Mean Corpuscular 33.4 g/dl Hemoglobin Concent Red Cell Distribution 14.3 % Width Platelet Count 175 10^3/UL Mean Platelet Volume 10.4 fl Immature Granulocytes 0.700 % % Neutrophils % 67.5 % Lymphocytes % 22.9 % Monocytes % 6.4 % Eosinophils % 2.1 % Basophils % 0.4 % Nucleated Red Blood 0.0 /100WBC Cells % Immature Granulocytes 0.060 10^3/ul # Neutrophils # 5.8 10^3/ul Lymphocytes # 2.0 10^3/ul Monocytes # 0.6 10^3/ul Eosinophils # 0.2 10^3/ul Basophils # 0.0 10^3/ul Nucleated Red Blood 0.0 10^3/ul Cells # OB Assessment/Plan Other Assessment: Status post Preeclampsia, was on magnesium. Currently off of mag. Blood pressures mildly at the range of 140s to 150s maximum. Denies any symptoms. Patient stable for discharge home. Strict preeclampsia precaution was discussed with the patient has signs and symptoms of preeclampsia discussed follow-up within 3 days after discharge from the hospital discussed with the patient Patient verbalized understanding. All questions were answered to patient with satisfaction Patient was advised to call the primary OB office to make an appointment in 3 days to be seen She is aware of the signs and symptoms and if she have any of those symptoms immediately return to the hospital. All questions were answered to patient with satisfaction. SILVA BANSAL MD September 30, 2018 16:17
[2018-09-30 16:40] VITALS: BP 138/88; PULSE 72; RESP 17
[2018-09-30 20:00] VITALS: BP 153/80; PULSE 82; RESP 18
[2018-09-30] MEDS: LABETALOL 100 MG TAB PO SCH (20:18)
[2018-10-01] VITALS: BP 133/82; PULSE 73; RESP 18
[2018-10-01] MEDS: IBUPROFEN 800 MG TAB PO SCH ×4 (00:12→17:38)
[2018-10-01 04:10] VITALS: BP 126/73; PULSE 75; RESP 18
[2018-10-01] MEDS: HYDROCODONE/APAP (5/325) TAB PO PRN ×3 (04:52→22:42)
[2018-10-01] MEDS: WITCH HAZEL/GLYCERIN PAD PR PRN ×2 (05:16→22:43)
[2018-10-01] MEDS: ACETAMINOPHEN 325 MG TAB PO PRN (08:05)
[2018-10-01 09:40] VITALS: BP 143/95; PULSE 74; RESP 18
[2018-10-01] MEDS: LABETALOL 100 MG TAB PO SCH ×2 (09:59→20:38)
--- NOTE | 2018-10-01 10:08 | QN ---
Documentation Comment PPD#3 is stable afebrile.No VB +BM+voids VS stable Gen NAD Abd soft NT ND Genitalia:no blood at perineum --->BP reviewed -->patient will be observed another day --->Questions answered JOSE BRAVO M.D. October 01, 2018 10:08
[2018-10-01 12:00] VITALS: BP 138/79; PULSE 84; RESP 18
[2018-10-01 16:00] VITALS: BP 138/79; RESP 18
[2018-10-01 20:30] VITALS: BP 147/85; PULSE 71; RESP 18
[2018-10-02] VITALS: BP 142/90; PULSE 76; RESP 18
[2018-10-02] MEDS: IBUPROFEN 800 MG TAB PO SCH ×3 (00:40→12:00)
[2018-10-02 04:30] VITALS: BP 137/90; PULSE 79; RESP 18
[2018-10-02 08:00] VITALS: BP 134/76; PULSE 72; RESP 18
--- NOTE | 2018-10-02 08:27 | DS ---
Date/Time of Note Date/Time of Note DATE: 10/02/18 TIME: 08:26 Discharge Summary Admission/Discharge Info Admit Date/Time Sep 25, 2018 at 09:32 Discharge Date/Time Discharge Diagnosis pyelonephritis, PIH, term Patient Condition: Stable Hospital Course received Ancef, Magnesium Home Meds Reported Medications Cholecalciferol* (Vitamin D*) 400 Unit Tablet, 400 UNIT PO DAILY, TAB 06/16/18 Ferrous Sulfate (Ferrous Sulfate) 325 Mg Tablet., 325 MG PO DAILY 06/16/18 Pnv95/Ferrous Fumarate/FA ( Vitamins Tablet) 1 Each Tablet, 1 EACH PO DAILY, TAB 06/16/18 Primary Care Provider Not On Staff Doctor KACEY MAYNARD MD October 02, 2018 08:27
[2018-10-02 09:30] VITALS: BP 127/65; PULSE 76; RESP 18
[2018-10-02] MEDS: LABETALOL 100 MG TAB PO SCH (09:39)
[2018-10-02 11:38] VITALS: BP 123/72; PULSE 81
--- NOTE | 2018-10-03 12:21 | DELSUM ---
Delivery Summary A-C Datetime Report Generated by CPN: 10/03/2018 12:21 DELIVERY PERSONNEL Quality Assurance Engineer: Theresa Valdovinos MATERNAL INFORMATION Delivery Anesthesia: Epidural Medications in Delivery: LR W/ 30 UNITS PITOCIN Delivery QBL (ml): 300 Placenta Cultured: No Maternal Complications: Other Other Maternal Complications: HIGH BP AND ELEVATED AST LABOR SUMMARY EDC: 10/12/2018 00:00 No. Babies in Womb: 1 Attempted: No Labor Anesthesia: Epidural LABOR INFORMATION Reason for Induction: Not Applicable Onset of Labor: 09/28/2018 01:00 Complete Dilatation: 09/28/2018 12:28 Cervical Ripening Agents: Cytotec @ Oxytocin: Induction Group B Beta Strep: Positive Antibiotics # of Doses: 6 Antibiotics Time of Last Dose: 09/28/2018 12:45 Steroids Given: None Reason Steroids Not Administered: Not Applicable MEMBRANES Membranes Rupture Method: Artificial Rupture of Membranes: 09/28/2018 12:56 Length of Rupture (hr): 0.00 Amniotic Fluid Color: Clear Amniotic Fluid Amount: Small Amniotic Fluid Odor: None STAGES OF LABOR Stage 1 hr: 11 Stage 1 min: 28 Stage 2 hr: 0 Stage 2 min: 28 Stage 3 hr: 0 Stage 3 min: 1 Total Time in Labor hr: 11 Total Time in Labor min: 57 VAGINAL DELIVERY Episiotomy: None Laceration Extension: First Degree Laceration Type: Perineal Laceration Repair: Yes Initial Vag Sponge Count: 10 Final Vag Sponge Count: 10 Initial Vag Sharps Count: 1 Final Vag Sharps Count: 1 Sponge Count Correct: Yes; Vaginal Sweep Performed Sharps Count Correct: Yes BABY A INFORMATION Infant Delivery Date/Time: 09/28/2018 12:56 Method of Delivery: Vaginal Born in Route : No : N/A Forceps: N/A Vacuum Extraction: N/A Shoulder Dystocia : No SHOULDER DYSTOCIA BABY A Delivery Date/Time: 09/28/2018 12:56 PRESENTATION/POSITION BABY A Presentation: Cephalic Cephalic Presentation: Vertex Breech Presentation: N/A PLACENTA INFORMATION BABY A Placenta Delivery Time : 09/28/2018 12:57 Placenta Method of Delivery: Expressed Placenta Status: Delivered SCORES BABY A Heart Rate 1 min: >100 bpm Resp Effort 1 min: Good Cry Reflex Irritability 1 min: Cough/Sneeze/Pulls Away Muscle Tone 1 min: Active Motion Color 1 min: Blue/Pale Resuscitation Effort 1 min: Tactile Stimulation SCORE 1 MIN: 8 Heart Rate 5 min: >100 bpm Resp Effort 5 min: Good Cry Reflex Irritability 5 min: Cough/Sneeze/Pulls Away Muscle Tone 5 min: Active Motion Color 5 min: Body [place], Extremit Blue Resuscitation Effort 5 min: Tactile Stimulation SCORE 5 MIN: 9 INFORMATION BABY A Gestational Age at Delivery: 38.0 Gestational Status: Early Term- 37- 38.6 Weeks Infant Outcome : Liveborn Condition : Stable Sex: Female IDENTIFICATION/MEDS BABY A ID Band Number: [id number] ID Band Location: Right Leg; Left Arm Sensor Applied: Yes Sensor Number: [id number] Sensor Location : Cord Clamp Vitamin K Given : Not Given Erythromycin Given: Not Given WEIGHT/LENGTH BABY A Infant Birthweight (gm): 3165 Infant Weight (lb): 7 Infant Weight (oz): 0 Length (in): 18.00 Length (cm): 45.72 CORD INFORMATION BABY A No. Cord Vessels: 3 Nuchal Cord : N/A Cord Blood Taken: Yes Infant Suction: Mouth; Nose ASSESSMENT BABY A Complications: None Physical Findings at Delivery: Within Normal Limits Infant Respirations: Appears Normal Department Specialist/ALS Called : No Infant Care By: Astrid RN Transferred To: Remains with Mother
== END 2018-10-02 12:10 | disposition home or self-care (01) | DRG 807 ==
LOC: L-D 09:01 → OBT 09:01 → L-D 09:32 → OBT 09:43 → PP1 21:51 → L-D 09-27 13:21 → PP1 09-28 15:43
PROVIDERS: ADMIT Obstetrics & Gynecology; ATTEND Obstetrics & Gynecology
PROC: 10E0XZZ Delivery of Products of Conception, External Approach (ICD-10-PCS; principal; 2018-09-28)
PROC: 0HQ9XZZ Repair Perineum Skin, External Approach (ICD-10-PCS; 2018-09-28)
DX: O75.3 Other infection during labor (principal); O13.4 Gestational [pregnancy-induced] hypertension without significant proteinuria, complicating childbirth; O70.0 First degree perineal laceration during delivery; Z3A.37 37 weeks gestation of pregnancy; Z37.0 Single live birth
CPT/HCPCS: 62322; 76815; 76818; 80053; 81001; 83735; 85025; 85610; 85730; 86592; 86850; 86900; 86901; 87086; 87340; 88307; 90715; 90716; G0463; J0290; J0610; J0690; J2590; J3010; J3475; J7120